=== PATIENT | female | born 2000 | race Caucasian/White ===

== ENCOUNTER 2023-06-30 19:37 | Emergency (ER) | payer OTHER ==
[~2023-06-30] VITALS: Ht 175.3 cm; Wt 70.3 kg
[2023-06-30 19:55] VITALS: BP 136/91
[2023-06-30] MEDS ORDERED: ONDA4ODT MM (20:03)
== END 2023-06-30 20:06 | disposition home or self-care (01) ==
LOC: ER 19:37
DX: K52.9 Noninfective gastroenteritis and colitis, unspecified (principal); Z79.899 Other long term (current) drug therapy
CPT/HCPCS: 99283; A9270

== ENCOUNTER 2024-01-12 14:58 | Emergency (ER) | payer OTHER ==
[~2024-01-12] VITALS: Ht 170.2 cm; Wt 72.6 kg
[~2024-01-12 14:58] MED LIST: ONDA4ODT MM
[2024-01-12 15:01] VITALS: BP 143/80
[2024-01-14 16:04] LABS: HIV 1,2 COMBO ANTIGEN/ANTIBODY Negative (Negative)
[2024-01-15 13:01] LABS: APTIMA MEDIA TYPE Urine; C. TRACHOMATIS BY TMA Positive (Negative); N. GONORRHOEAE BY TMA Negative (Negative); SPECIMEN SOURCE Urine
== END 2024-01-12 16:45 | disposition home or self-care (01) ==
LOC: ER 14:58
PROVIDERS: Nurse Practitioner
DX: Z20.6 Contact with and (suspected) exposure to human immunodeficiency virus [HIV] (principal); Z32.00 Encounter for pregnancy test, result unknown
CPT/HCPCS: 36415; 81025; 87389; 87491; 87591; 99283